=== PATIENT | female | born 1985 | race Caucasian/White ===

== ENCOUNTER 2021-03-30 06:23 | Emergency (ER) | payer OTHER ==
[~2021-03-30] VITALS: Ht 160 cm; Wt 79.4 kg
[2021-03-30] MEDS ORDERED: LIPITOR20 MG PO (06:38)
[2021-03-30] MEDS ORDERED: HYDROCODON-ACE1 EA10 PO (06:53)
[2021-03-30] MEDS ORDERED: AUGMENTIN 875-1 EACH PO (06:53)
== END 2021-03-30 07:13 | disposition home or self-care (01) ==
LOC: ED 06:23
DX: H66.91 Otitis media, unspecified, right ear (principal); E78.5 Hyperlipidemia, unspecified; Z79.899 Other long term (current) drug therapy
CPT/HCPCS: 99282